=== PATIENT | female | born 1995 | race Caucasian/White ===

== ENCOUNTER 2021-03-09 08:46 | Outpatient (CLI) | payer OTHER ==
[2021-03-09] MEDS ORDERED: BUFFERED LIDOCAINE 10 ML SYRINGE ONE (08:54)
[2021-03-09] MEDS ORDERED: GADOBUTROL 7.5 MMOL/7.5 ML VIAL ONE (08:55)
[2021-03-09] MEDS ORDERED: IOTHALAMATE MEGLUMINE 50 ML VIAL ONE (08:55)
--- NOTE | 2021-03-09 11:54 | MRI Report ---
PROCEDURE: Arthrogram Shoulder RT INDICATIONS: PAIN IN RIGHT SHOULDER TECHNIQUE: After the administration of 12 mL of dilute intra-articular Gadolinium contrast, oblique coronal T1 a nd T2 spin echo with fat saturation, oblique sagittal T1 spin echo with and without fat saturation, o blique sagittal T2 fast spin echo with fat saturation, axial T1 spin echo with fat saturation through the shoulder. COMPARISON: None. Findings: Supraspinatus: Mild tendinopathy with interstitial tear. Infraspinatus: No evidence of tear. Subscapularis: No evidence of tear. Teres minor: No evidence of tear. Labrum: No evidence of tear. Biceps tendon: No subluxation. Split tear of the biceps tendon (series 401, image 8) versus artifact. Acromioclavicular joint: Normal alignment. Muscle: No significant atrophy. Bones: No significant abnormality. Specifically, no evidence of fracture, contusion, or necrosis. Miscellaneous: No subacromial/subdeltoid bursal fluid. No intra-articular bodies. Intact coracoclavicular ligament. IMPRESSION: 1. Mild supraspinatus tendinopathy with interstitial tear. 2. Split tear versus artifact of the biceps tendon Reviewed by: Janak Mello MD on 03/09/2021 11:53 AM PST Approved by: Janak Mello MD on 03/09/2021 11:53 AM PST Station ID: [id number]
[2021-03-09] MEDS ORDERED: BUFFERED LIDOCAINE 10 ML SYRINGE IU ONE (11:55)
[2021-03-09] MEDS ORDERED: IOTHALAMATE MEGLUMINE 50 ML VIAL IVP ONE (11:57)
[2021-03-09] MEDS ORDERED: GADOBUTROL 7.5 MMOL/7.5 ML VIAL IVP ONE (11:59)
--- NOTE | 2021-03-09 13:21 | XRAY Report ---
PROCEDURE: Arthrogram Needle Placement INDICATIONS: PAIN IN RIGHT SHOULDER CONTRAST: CONTRAST: conray & Gadav FLUOROSCOPY TIME: FLUORO TIME: 0.2 min and NUMBER IMAGES: 2 TECHNIQUE: The indications, alternatives, benefits, risks, and complications of the procedure were explained to the patient. Written informed consent was obtained and placed in the chart. The shoulder was examin ed fluoroscopically and a site for needle placement chosen for entry into the glenohumeral joint from an anterior approach. The skin was prepped and draped in the usual fashion, and 1% lidocaine infilt rated from skin down to joint capsule. A spinal needle was inserted into the glenohumeral joint, and a small amount of iodinated contrast media injected to confirm intra-articular placement of the need le tip. This was followed by approximately 12 mL dilute solution of a gadolinium containing MR contr ast agent. The needle was removed and a dressing was applied. The patient was given postprocedural instructions and sent to the MR suite for MR imaging. FINDINGS: A single fluoroscopic spot image demonstrates intra-articular location of injected iodinated contrast . IMPRESSION: Successful fluoroscopically guided administration of dilute Gadolinium solution into the right should er joint for MR arthrogram. Reviewed by: Lenny Malik MD on 03/09/2021 1:19 PM PST Approved by: Lenny Malik MD on 03/09/2021 1:19 PM PST Station ID: [id number]
== END 2021-03-09 08:47 | disposition home or self-care (01) ==
LOC: DI 08:46
PROVIDERS: ATTEND Physician Assistant
DX: M75.101 Unspecified rotator cuff tear or rupture of right shoulder, not specified as traumatic (principal)
CPT/HCPCS: 23350; 73222; 77002; A9585; Q9961